=== PATIENT | male | born 1955 | race African-American/Black ===

== ENCOUNTER 2018-06-13 14:32 | Emergency (ER) | payer OTHER ==
[~2018-06-13] VITALS: Ht 170.2 cm; Wt 104.3 kg
[2018-06-13] MEDS ORDERED: ALBUTEROL (0.083%) 2.5MG/3ML NEB HHN STA (15:17)
[2018-06-13 15:41] VITALS: BP 155/84
== END 2018-06-13 17:45 | disposition home or self-care (01) ==
LOC: ER 17:42
DX: B34.9 Viral infection, unspecified (principal); H40.9 Unspecified glaucoma; I10 Essential (primary) hypertension; F17.200 Nicotine dependence, unspecified, uncomplicated; R07.89 Other chest pain; Z98.890 Other specified postprocedural states
CPT/HCPCS: 71045; 93005; 94640; 99284; J7611